=== PATIENT | male | born 1970 | race Two or more races ===

== ENCOUNTER → 2017-02-06 08:44 | Outpatient (CLI) | payer SELFPAY ==
--- NOTE | 2017-02-06 10:54 | NUR ---
Nutrition education for pre/post op bariatric surgery: S: Pt reports he has been overeating at meals for some time now. He has recently started to track his calorie intake using an I-phone alvin. Pt is trying to follow a [address] Gillespie. Pt is really working on decreasing portion size. Pt is having trouble following a meal plan on the weekends. Pt has a sedentary job and sits all day; however, pt is starting to walk at breaks and whenever he can during the day. Pt has a very strong family history of DMT2 and HTN. O: 46 year old male Ht: 6' Wt: 452# IBW: 178# +/-10% BMI: 61.3 Goal wt post-sursgery: 240# PMH: sleep apnea, pre-HTN A: Reviewed pre/post op diet; reviewed sample menus; 3 ounce meal size; liquids between meals; no straws, no carbonated drinks, no alcohol; protein supplements; stomach size and pouch stretching; no sweets or high fat foods; vitamin, mineral supplements. Pt is not too happy with diet restrictions. Pt is still in the contemplation stage. Pt is now thinking he may be able to lose weight with diet modification and not have bariatric surgery. Pt questions answered. Pt with good understanding of information provided; h didier, pt may not be ready to make the necessary diet changes needed for long-term weight loss success. P: Provided pt with printed diet information and RDN name and phone number. RDN will be available if needed. Thank you for the consult.
== END ==
LOC: D.FANS 08:44
DX: Z01.818 Encounter for other preprocedural examination (principal)

== ENCOUNTER 2018-05-30 08:59 | Outpatient (CLI) | payer OTHER | END 2018-05-30 10:20 | LOC: D.OPS 08:59 | DX: E66.01 Morbid (severe) obesity due to excess calories (principal) ==

== ENCOUNTER 2018-06-10 05:45 | Day surgery (SDC) | payer OTHER ==
[~2018-06-10] VITALS: Ht 182.9 cm; Wt 204.1 kg
[2018-06-10 06:17] LABS: HEMATOCRIT 42.5 % (42.0-54.0); HEMOGLOBIN 14.7 g/dL (13.5-17.5); MCH 30.7 pg (26.0-34.0); MCHC 34.6 g/dL (31.0-37.0); MCV 88.7 fL (80.0-100.0); MEAN PLATELET VOLUME 9.6 fL (7.4-10.4); RBC 4.79 10x6/uL (4.20-6.10); RDW 13.6 % (11.5-14.5); WBC 5.8 10x3/uL (4.8-10.8)
[2018-06-10] MEDS ORDERED: ADVIL200 MG PO (06:35)
[2018-06-10] MEDS ORDERED: EXCEDRIN (06:36)
[2018-06-10 06:43] VITALS: BP 161/89; Ht 182.9 cm; Wt 204.1 kg
== END 2018-06-10 09:22 | disposition home or self-care (01) ==
LOC: D.OPS 05:45
PROVIDERS: Anesthesiology
DX: K21.0 Gastro-esophageal reflux disease with esophagitis (principal); K44.9 Diaphragmatic hernia without obstruction or gangrene; K22.10 Ulcer of esophagus without bleeding; K29.70 Gastritis, unspecified, without bleeding; E66.9 Obesity, unspecified; Z68.44 Body mass index [BMI] 60.0-69.9, adult; Z01.812 Encounter for preprocedural laboratory examination

== ENCOUNTER 2018-07-15 08:10 | Inpatient (IN) | payer OTHER ==
[2018-07-12 15:40] LABS: HEMATOCRIT 43.6 % (42.0-54.0); HEMOGLOBIN 15.1 g/dL (13.5-17.5); MCH 30.8 pg (26.0-34.0); MCHC 34.6 g/dL (31.0-37.0); MCV 88.8 fL (80.0-100.0); MEAN PLATELET VOLUME 9.8 fL (7.4-10.4); RBC 4.91 10x6/uL (4.20-6.10); RDW 13.5 % (11.5-14.5); WBC 8.8 10x3/uL (4.8-10.8)
[~2018-07-15] VITALS: Ht 182.9 cm; Wt 202.3 kg
[~2018-07-15 08:10] MED LIST: ADVIL200 MG PO; EXCEDRIN
[2018-07-15 08:33] VITALS: BP 155/81; BMI 60.5
[2018-07-15 17:14] VITALS: BP 178/101
--- NOTE | 2018-07-15 17:15 | NUR ---
ARRIVED TO ROOM 2217 AWAKE AND ALERT. RESP EVEN AND UNLABORED WITH NO DISTRESS NOTED OR VOICED. CAN VOICE NEEDS AND WANTS. C/O ABD PAIN RATING 8/10 ON PAIN SCALE. WAS MEDICATED WITH TOROAL PER ORDERS. ASSESSMENT COMPLETED. C/L IN REACH AT BEDSIDE.
[2018-07-15 18:03] VITALS: BP 184/103; Ht 182.9 cm; Wt 202.3 kg
[2018-07-15 20:00] VITALS: BP 164/97
--- NOTE | 2018-07-16 02:51 | NUR ---
EYES CLOSED RESPIRATIONS WITH EASE AND UNLABORED. SR UP X2 CALL LIGHT WITHIN REACH.
[2018-07-16 04:28] VITALS: BP 142/70
[2018-07-16 04:41] VITALS: BP 141/72
--- NOTE | 2018-07-16 07:30 | NUR ---
REC'D IN BED AWAKE AND ALERT. RESP EVEN AND UNLABORED WITH NO DISTRESS NOTED. CAN EXPRESS NEEDS AND WANTS. NO C/O NOTED OR VOICED. MORPHINE TELECOMMUNICATIONS REPAIRER IN USE. ASSESSMENT COMPLETED. C/L IN REACH AT BEDSIDE.
[2018-07-16 07:37] LABS: BASOPHILS 0.1 % (0-2); EOSINOPHILS 0 % (0-7); HEMATOCRIT 42.5 % (42.0-54.0); HEMOGLOBIN 14.7 g/dL (13.5-17.5); IMMATURE GRANULOCYTES 0.4 % (0-5); LYMPHOCYTES 8.7 % (15-50); MCH 30.4 pg (26.0-34.0); MCHC 34.6 g/dL (31.0-37.0); MEAN PLATELET VOLUME 10.1 fL (7.4-10.4); MONOCYTES 11.8 % (2-11); PLATELET COUNT 256 10x3/uL (130-400); RBC 4.83 10x6/uL (4.20-6.10); RDW 13.5 % (11.5-14.5)
[2018-07-16 07:59] LABS: ALBUMIN 3.3 g/dL (3.4-5.0); ALKALINE PHOSPHATASE 82 U/L (46-116); ALT (SGPT) 67 U/L (10-68); BILIRUBIN - TOTAL 0.54 mg/dL (0.2-1.3); CALC OSMOLALITY 275 mosm/kg (275-300); CALCIUM 9.1 mg/dL (8.5-10.1); CARBON DIOXIDE 25.7 mmol/L (21.0-32.0); CHLORIDE - SERUM 103 mmol/L (98-107); CREATININE - SERUM 0.8 mg/dL (0.6-1.3); GLUCOSE 122 mg/dL (74-106); POTASSIUM - SERUM 3.8 mmol/L (3.5-5.1); PROTEIN - SERUM 6.9 g/dL (6.4-8.2); SODIUM 138 mmol/L (136-145); UREA NITROGEN 9 mg/dL (7-18); eGFR NON AFRICAN AMERICAN > 90 mL/min (90-120)
[2018-07-16 08:36] VITALS: BP 150/56
--- NOTE | 2018-07-16 09:37 | NUR ---
NUTRITION MONITORING AND EVAL PT WITH NO SPECIFIC QUESTIONS REGARDING BARIATRIC SLEEVE DIET. DID HOWEVER REQUEST DIET GUIDELINES HE HAS RECENTLY MOVED AND LOST PREVIOUS INFORMATION. PROVIDED DIET SECTION OF WORKBOOK TO PT. RD FOLLOWING
[2018-07-16] MEDS ORDERED: ZOFRAN ODT4 MG/UDTAB PO (10:02)
[2018-07-16] MEDS ORDERED: HYDROCODON-ACE1 EAC7 PO (10:02)
--- NOTE | 2018-07-16 11:45 | NUR ---
PT DC HOME AT THIS ITME VOICE UNDERSTANDING OF DC ORDERS. IV WAS DC WELL. NO C/O NOTED AND WAS IN STABLE CONDITION UPON DEPARTURE.
[2018-08-02] MEDS ORDERED: FLOMAX0.4 MG PO (14:55)
== END 2018-07-16 11:51 | disposition home or self-care (01) | DRG 621 ==
LOC: D.SDCHOLD 08:10 → D.MS 16:16
PROVIDERS: ADMIT Surgery
PROC: 0DB64Z3 Excision of Stomach, Percutaneous Endoscopic Approach, Vertical (ICD-10-PCS; principal; 2018-07-15 10:45)
DX: E66.01 Morbid (severe) obesity due to excess calories (principal); Z68.44 Body mass index [BMI] 60.0-69.9, adult; I10 Essential (primary) hypertension; G47.33 Obstructive sleep apnea (adult) (pediatric)

== ENCOUNTER 2018-07-28 09:23 | Emergency (ER) | payer OTHER ==
[~2018-07-28] VITALS: Ht 182.9 cm; Wt 202.3 kg
[~2018-07-28 09:23] MED LIST changes: +HYDROCODON-ACE1 EAC7 PO; +ZOFRAN ODT4 MG/UDTAB PO
[2018-07-28 09:32] VITALS: Ht 182.9 cm; Wt 202.3 kg
[2018-07-28 09:59] LABS: BASOPHILS 0.4 % (0-2); EOSINOPHILS 0.8 % (0-7); HEMOGLOBIN 15.1 g/dL (13.5-17.5); IMMATURE GRANULOCYTES 0.3 % (0-5); LYMPHOCYTES 18.6 % (15-50); MCH 30.4 pg (26.0-34.0); MCHC 34.3 g/dL (31.0-37.0); MCV 88.7 fL (80.0-100.0); MEAN PLATELET VOLUME 10.2 fL (7.4-10.4); MONOCYTES 7.3 % (2-11); NEUTROPHILS 72.6 % (40-80); PLATELET COUNT 273 10x3/uL (130-400); RBC 4.96 10x6/uL (4.20-6.10); RDW 13.6 % (11.5-14.5); WBC 7.6 10x3/uL (4.8-10.8)
[2018-07-28 10:20] LABS: ALBUMIN 3.7 g/dL (3.4-5.0); ALKALINE PHOSPHATASE 93 U/L (46-116); ALT (SGPT) 62 U/L (10-68); BILIRUBIN - TOTAL 0.67 mg/dL (0.2-1.3); CALC OSMOLALITY 283 mosm/kg (275-300); CALCIUM 9.1 mg/dL (8.5-10.1); CHLORIDE - SERUM 103 mmol/L (98-107); CREATININE - SERUM 1.1 mg/dL (0.6-1.3); GLUCOSE 156 mg/dL (74-106); POTASSIUM - SERUM 3.6 mmol/L (3.5-5.1); PROTEIN - SERUM 7.5 g/dL (6.4-8.2); SODIUM 141 mmol/L (136-145); UREA NITROGEN 13 mg/dL (7-18); eGFR NON AFRICAN AMERICAN 76 mL/min (90-120)
[2018-07-28 10:47] LABS: APPEARANCE HAZY (CLEAR); BILIRUBIN NEGATIVE (NEGATIVE); COLOR YELLOW (YELLOW); GLUCOSE NEGATIVE (NEGATIVE); KETONE MODERATE mg/dL (NEGATIVE); NITRITE NEGATIVE (NEGATIVE); PROTEIN NEGATIVE (NEGATIVE); UROBILINOGEN NORMAL (NORMAL)
[2018-07-28 10:54] LABS: BACTERIA FEW /hpf (NONE SEEN); CALCIUM OXALATE CRYSTALS RARE /hpf (NONE SEEN); EPITHELIAL CELLS OCC /hpf (0-5); RED CELLS - URINE 25-50 /hpf (0-5); WHITE CELLS - URINE 0-5 /hpf (0-5)
[2018-07-28] MEDS ORDERED: TORADOL10 MG PO (12:56)
[2018-07-28 13:05] VITALS: BP 148/96
[2018-08-02] MEDS ORDERED: FLOMAX0.4 MG PO (14:55)
== END 2018-07-28 13:07 | disposition home or self-care (01) ==
LOC: D.ER 09:23
PROVIDERS: Family Medicine
DX: N20.0 Calculus of kidney (principal); Z98.84 Bariatric surgery status

== ENCOUNTER 2018-08-01 06:23 | Emergency (ER) | payer OTHER ==
[~2018-08-01] VITALS: Ht 182.9 cm; Wt 191.8 kg
[~2018-08-01 06:23] MED LIST changes: +TORADOL10 MG PO
[2018-08-01 06:27] VITALS: Ht 182.9 cm; Wt 191.8 kg
[2018-08-01] MEDS ORDERED: FLOMAX0.4 MG PO (06:28)
[2018-08-01] MEDS ORDERED: ULTRAM50 MG PO (06:28)
[2018-08-01 07:12] LABS: BASOPHILS 0.5 % (0-2); EOSINOPHILS 0.4 % (0-7); HEMATOCRIT 41.3 % (42.0-54.0); HEMOGLOBIN 14.1 g/dL (13.5-17.5); IMMATURE GRANULOCYTES 0.4 % (0-5); LYMPHOCYTES 12.8 % (15-50); MCH 29.9 pg (26.0-34.0); MCHC 34.1 g/dL (31.0-37.0); MCV 87.5 fL (80.0-100.0); MEAN PLATELET VOLUME 10.3 fL (7.4-10.4); NEUTROPHILS 74.9 % (40-80); PLATELET COUNT 262 10x3/uL (130-400); RBC 4.72 10x6/uL (4.20-6.10); RDW 13.5 % (11.5-14.5); WBC 7.3 10x3/uL (4.8-10.8)
[2018-08-01 07:21] LABS: ALBUMIN 3.5 g/dL (3.4-5.0); ALKALINE PHOSPHATASE 85 U/L (46-116); ALT (SGPT) 46 U/L (10-68); BILIRUBIN - TOTAL 0.64 mg/dL (0.2-1.3); CALC OSMOLALITY 283 mosm/kg (275-300); CALCIUM 8.8 mg/dL (8.5-10.1); CARBON DIOXIDE 22.7 mmol/L (21.0-32.0); CHLORIDE - SERUM 105 mmol/L (98-107); CREATININE - SERUM 1.2 mg/dL (0.6-1.3); GLUCOSE 119 mg/dL (74-106); POTASSIUM - SERUM 3.4 mmol/L (3.5-5.1); SODIUM 141 mmol/L (136-145); UREA NITROGEN 17 mg/dL (7-18); eGFR NON AFRICAN AMERICAN 69 mL/min (90-120)
[2018-08-01 07:24] LABS: AMYLASE - SERUM 65 U/L (25-115); LIPASE 227 U/L (73-393); TROPONIN-I < 0.017 ng/mL (0.000-0.060)
[2018-08-01] MEDS ORDERED: DILAUDID4 MG PO (07:40)
[2018-08-01] MEDS ORDERED: K-DUR20 MEQ PO (07:40)
[2018-08-01 07:41] LABS: APPEARANCE HAZY (CLEAR); BACTERIA FEW /hpf (NONE SEEN); BILIRUBIN NEGATIVE (NEGATIVE); COLOR YELLOW (YELLOW); EPITHELIAL CELLS OCC /hpf (0-5); GLUCOSE NEGATIVE (NEGATIVE); KETONE LARGE mg/dL (NEGATIVE); MUCUS <1+ /lpf (NONE SEEN); NITRITE NEGATIVE (NEGATIVE); PROTEIN NEGATIVE (NEGATIVE); SPECIFIC GRAVITY 1.015 (1.005-1.020)
[2018-08-01 08:32] VITALS: BP 143/84
[2018-08-02] MEDS ORDERED: FLOMAX0.4 MG PO (14:55)
== END 2018-08-01 08:31 | disposition home or self-care (01) ==
LOC: D.ER 06:23
PROVIDERS: Family Medicine
DX: R10.9 Unspecified abdominal pain (principal); E87.6 Hypokalemia; N20.1 Calculus of ureter

== ENCOUNTER 2018-08-06 08:50 | Outpatient (CLI) | payer OTHER ==
[2018-08-01 06:27] VITALS: BMI 57.4
[~2018-08-06 08:50] MED LIST changes: +DILAUDID4 MG PO; +FLOMAX0.4 MG PO; +K-DUR20 MEQ PO; +ULTRAM50 MG PO
== END 2018-08-06 08:51 | disposition home or self-care (01) ==
LOC: D.PAN 08:50 → EDSTATUS 11:00 → D.OPS 11:00 → D.PAN 11:00
PROVIDERS: ATTEND Urology
DX: N20.0 Calculus of kidney (principal)

== ENCOUNTER 2018-08-23 04:00 | Emergency (ER) | payer OTHER ==
[~2018-08-23] VITALS: Ht 182.9 cm; Wt 190.9 kg
[2018-08-23 04:07] VITALS: Ht 182.9 cm; Wt 190.9 kg
[2018-08-23 04:31] LABS: HEMATOCRIT 42.8 % (42.0-54.0); HEMOGLOBIN 14.7 g/dL (13.5-17.5); LYMPHOCYTES 27.7 % (15-50); MCH 29.9 pg (26.0-34.0); MCHC 34.3 g/dL (31.0-37.0); MEAN PLATELET VOLUME 10.3 fL (7.4-10.4); RBC 4.92 10x6/uL (4.20-6.10); RDW 14.2 % (11.5-14.5)
[2018-08-23 04:33] LABS: APPEARANCE CLEAR (CLEAR); BILIRUBIN NEGATIVE (NEGATIVE); COLOR YELLOW (YELLOW); GLUCOSE NEGATIVE (NEGATIVE); KETONE MODERATE mg/dL (NEGATIVE); NITRITE NEGATIVE (NEGATIVE); PROTEIN NEGATIVE (NEGATIVE); SPECIFIC GRAVITY 1.015 (1.005-1.020); UROBILINOGEN NORMAL (NORMAL)
[2018-08-23 04:34] LABS: PLATELET COUNT 206 10x3/uL (130-400)
[2018-08-23 04:55] LABS: ALBUMIN 3.6 g/dL (3.4-5.0); ALKALINE PHOSPHATASE 104 U/L (46-116); ALT (SGPT) 45 U/L (10-68); AMYLASE - SERUM 48 U/L (25-115); BILIRUBIN - TOTAL 1.05 mg/dL (0.2-1.3); CALC OSMOLALITY 283 mosm/kg (275-300); CALCIUM 9.2 mg/dL (8.5-10.1); CARBON DIOXIDE 26.3 mmol/L (21.0-32.0); CHLORIDE - SERUM 103 mmol/L (98-107); CREATININE - SERUM 1.1 mg/dL (0.6-1.3); GLUCOSE 116 mg/dL (74-106); LIPASE 244 U/L (73-393); POTASSIUM - SERUM 3.4 mmol/L (3.5-5.1); SODIUM 142 mmol/L (136-145); UREA NITROGEN 13 mg/dL (7-18); eGFR NON AFRICAN AMERICAN 76 mL/min (90-120)
[2018-08-23] MEDS ORDERED: ZOFRAN ODT4 MG/UDTAB PO (08:14)
[2018-08-23] MEDS ORDERED: FLOMAX0.4 MG PO (08:14)
[2018-08-23 08:35] VITALS: BP 150/83
== END 2018-08-23 08:34 | disposition home or self-care (01) ==
LOC: D.ER 04:00
PROVIDERS: Family Medicine
DX: N20.1 Calculus of ureter (principal); R30.0 Dysuria; R35.0 Frequency of micturition; R39.15 Urgency of urination

== ENCOUNTER 2019-05-25 23:07 | Inpatient (IN) | payer BC ==
[~2019-05-25] VITALS: Ht 182.9 cm; Wt 149.7 kg
[2019-05-25 23:38] LABS: HEMATOCRIT 42.7 % (42.0-54.0); HEMOGLOBIN 14.4 g/dL (13.5-17.5); LYMPHOCYTES 10.8 % (15-50); MCH 30.9 pg (26.0-34.0); MCHC 33.7 g/dL (31.0-37.0); MCV 91.6 fL (80.0-100.0); MEAN PLATELET VOLUME 9.8 fL (7.4-10.4); NEUTROPHILS 74.5 % (40-80); PLATELET COUNT 233 10x3/uL (130-400); RBC 4.66 10x6/uL (4.20-6.10); RDW 13.3 % (11.5-14.5); WBC 8.2 10x3/uL (4.8-10.8)
[2019-05-25 23:48] LABS: CALC OSMOLALITY 279 mosm/kg (275-300); CALCIUM 9.2 mg/dL (8.5-10.1); CARBON DIOXIDE 24.7 mmol/L (21.0-32.0); CHLORIDE - SERUM 104 mmol/L (98-107); CREATININE - SERUM 0.9 mg/dL (0.6-1.3); GLUCOSE 131 mg/dL (74-106); POTASSIUM - SERUM 3.5 mmol/L (3.5-5.1); SODIUM 138 mmol/L (136-145); UREA NITROGEN 17 mg/dL (7-18); eGFR NON AFRICAN AMERICAN > 90 mL/min (90-120)
--- NOTE | 2019-05-25 23:53 | NUR ---
PT PROVIDED URINAL.
[2019-05-25 23:56] LABS: ALBUMIN 3.6 g/dL (3.4-5.0); ALKALINE PHOSPHATASE 180 U/L (46-116); ALT (SGPT) 368 U/L (10-68); BILIRUBIN - TOTAL 1.55 mg/dL (0.2-1.3); LIPASE 175 U/L (73-393); PROTEIN - SERUM 7.4 g/dL (6.4-8.2)
[2019-05-25 23:58] LABS: TROPONIN-I < 0.017 ng/mL (0.000-0.060)
--- NOTE | 2019-05-26 00:10 | NUR ---
URINE TO LAB.
[2019-05-26 00:28] LABS: APPEARANCE CLEAR (CLEAR); BILIRUBIN NEGATIVE (NEGATIVE); COLOR YELLOW (YELLOW); GLUCOSE NEGATIVE (NEGATIVE); KETONE SMALL mg/dL (NEGATIVE); NITRITE NEGATIVE (NEGATIVE); PROTEIN NEGATIVE (NEGATIVE); SPECIFIC GRAVITY 1.005 (1.005-1.020); UROBILINOGEN NORMAL (NORMAL)
[2019-05-26 00:29] LABS: BACTERIA FEW /hpf (NEGATIVE); EPITHELIAL CELLS 0-5 /hpf (0-5); RED CELLS - URINE 0-5 /hpf (0-5); WHITE CELLS - URINE 0-5 /hpf (NEGATIVE)
--- NOTE | 2019-05-26 01:26 | NUR ---
PT AMBULATED TO RESTROOM WITH A STEADY GAIT.
[2019-05-26 02:45] VITALS: BP 108/51; BMI 44.8
--- NOTE | 2019-05-26 08:20 | NUR ---
ALERT AND ORIENTED. NO DISTRESS NOTED. FAMILY AT BS. NPO FOR US GALL BLADDER. CL IN REACH.
[2019-05-26 08:21] VITALS: BP 138/83
--- NOTE | 2019-05-26 10:40 | NUR ---
CALLED FOR ORDER FOR TYLENOL TO [facility]/DR PAULINO.
[2019-05-26 11:42] LABS: BASOPHILS 0.1 % (0-2); EOSINOPHILS 0 % (0-7); HEMATOCRIT 41.1 % (42.0-54.0); HEMOGLOBIN 13.7 g/dL (13.5-17.5); IMMATURE GRANULOCYTES 0.1 % (0-5); LYMPHOCYTES 6.6 % (15-50); MCH 31.1 pg (26.0-34.0); MCHC 33.3 g/dL (31.0-37.0); MCV 93.4 fL (80.0-100.0); MEAN PLATELET VOLUME 10.3 fL (7.4-10.4); MONOCYTES 11.4 % (2-11); NEUTROPHILS 81.8 % (40-80); PLATELET COUNT 232 10x3/uL (130-400); RDW 13.3 % (11.5-14.5); WBC 7.8 10x3/uL (4.8-10.8)
--- NOTE | 2019-05-26 12:25 | NUR ---
NO CHANGE IN ASSESSMENT. FAMILY IN ROOM. CL IN REACH. DR WYATT WAS CONSULTED AND WILL SEE HIM.
[2019-05-26 12:59] VITALS: BMI 44.7
[2019-05-26 14:45] VITALS: BP 144/78
--- NOTE | 2019-05-26 15:57 | MORECARE ---
CASE MANAGEMENT DISCHARGE SUMMARY PATIENT: CRISTOFER SULLIVAN UNIT: [id number] ADM DATE: 05/26/19 AGE: 49 : 74 SEX: M ROOM/BED: D.1213 AUTHOR: MARY ESCOBAR PHYSICIAN: REFERRING PHYSICIAN: GAY MONTANO MD DATE OF SERVICE: 05/26/19 Discharge Plan Patient Name: CRISTOFER SULLIVAN [facility] [facility] 1970 Planned Disposition: Home Anticipated Discharge Date: Discharge Date: Expected LOS: Initial Reviewer: [email or web address] Initial Review Date: 05/26/2019 Generated: 05/26/19 4:56 pm DCPIA - Discharge Planning Initial Assessment Updated by [email or web address]: Lawrence Marshall on 05/26/19 3:53 pm * Is the patient Alert and Oriented? Yes * How many steps to enter\exit or inside your home? * PCP DR. Keesha NATHAN * Pharmacy [facility] * Preadmission Environment Home with Family * ADLs Independent * Equipment CPAP * Other Equipment [employer] - MEDICAL EQUIPMENT PROVIDER * List name and contact numbers for known caregivers / representatives who currently or will assist patient after discharge: NA SULLIVAN, SPOUSE, * Verbal permission to speak to the caregivers and representatives has been obtained from the patient. N/A * Community resources currently utilized None * Please name any agencies selected above. NONE * Additional services required to return to the preadmission environment? No * Can the patient safely return to the preadmission environment? Yes * Has this patient been hospitalized within the prior 30 days at any hospital? No Patient Name: CRISTOFER SULLIVAN Page [id number] at 1557 All edits/amendments must be made on the electronic document DICTATION DATE: 05/26/191555 EMBOSSOGRAPH OPERATOR: KOMAL 05/26/191555 RPT#: [id number] DC DATE: STATUS: ADM IN [facility] [address] [place] [address] END OF REPORT
--- NOTE | 2019-05-26 16:05 | MORECARE ---
CASE MANAGEMENT DISCHARGE SUMMARY PATIENT: CRISTOFER SULLIVAN UNIT: [id number] ADM DATE: 05/26/19 AGE: 49 : 74 SEX: M ROOM/BED: D.1213 AUTHOR: SHAWN,DOC PHYSICIAN: REFERRING PHYSICIAN: GAY MONTANO MD DATE OF SERVICE: 05/26/19 Discharge Plan Patient Name: CRISTOFER SULLIVAN Facility: [facility]:[place] : 1970 Planned Disposition: Home Anticipated Discharge Date: Discharge Date: Expected LOS: Initial Reviewer: [email or web address] Initial Review Date: 05/26/2019 Generated: 05/26/19 5:05 pm Comments DCP- Discharge Planning Updated by [email or web address]: Lawrence Marshall on 05/26/19 2:[address] Patient Name: CRISTOFER SULLIVAN Admission Status: ER Accout number: [id number] Admission Date: 05-26-2019 : 1970 Admission Diagnosis: Attending: GAY MONTANO Current LOS: 1 Anticipated DC Date: Planned Disposition: Home Primary Insurance: [employer] O Discharge Planning Comments: CM RECEIVED ORDER FOR CM TO ASSIST PT WITH LIVING WILL. CM MET WITH PT IN ROOM TO DISCUSS DISCHARGE PLANNING AND NEEDS. PT REPORTS LIVING AT HOME INDEPENDENTLY WITH HIS SPOUSE. PT HAS CPAP FROM [facility]. PT HAS NO OUTSIDE SERVICES ASSISTING IN THE HOME. CM DISCUSSED AVAILABILITY OF HOME HEALTH, REHAB SERVICES AND MEDICAL EQUIPMENT. PT DENIES DISCHARGE NEEDS, REPORTS HIS WILL PICK HIM UP FOR DISCHARGE HOME, PT HAS NO ANTICIPATED DISCHARGE NEEDS AT THIS TIME. CM PROVIDED LIVING WILL AND MEDICAL POWER OF APPLICATION SUPPORT, DISCUSSED HOW TO COMPLETE IT AND NOT TO SIGN IT; CM INSTRUCTED PT TO NOTIFY CM WHEN FILLED OUT WITHOUT SIGNATURE AND THAT CM WILL CALL NOTARY TO THE ROOM TO WITNESS AND NOTARIZE SIGNATURES BETWEEN HOURS OF 8AM AND 4:30PM SUNDAY THRU SUNDAY. PT REPORTED UNDERSTANDING. PT PLANS TO DISCHARGE HOME WITH SPOUSE, HAS NO ANTICIPATED DISCHARGE NEEDS AT THIS TIME. CM TO FOLLOW AND ASSIST IF NEEDED. Psychological Operations Officer: Lawrence Marshall DCPIA - Discharge Planning Initial Assessment Updated by [email or web address]: Lawrence Marshall on 05/26/19 3:53 pm * Is the patient Alert and Oriented? Yes * How many steps to enter\exit or inside your home? * PCP DR. Keesha NATHAN * Pharmacy [facility] * Preadmission Environment Home with Family * ADLs Independent * Equipment CPAP * Other Equipment [employer] - MEDICAL EQUIPMENT PROVIDER * List name and contact numbers for known caregivers / representatives who currently or will assist patient after discharge: NA SULLIVAN, SPOUSE, * Verbal permission to speak to the caregivers and representatives has been obtained from the patient. N/A * Community resources currently utilized None * Please name any agencies selected above. NONE * Additional services required to return to the preadmission environment? No * Can the patient safely return to the preadmission environment? Yes * Has this patient been hospitalized within the prior 30 days at any hospital? No Last DP export: 05/26/19 2:57 Patient Name: CRISTOFER SULLIVAN Page 12033 at 1605 All edits/amendments must be made on the electronic document DICTATION DATE: 05/26/191604 KETTLE HAND: KOMAL 05/26/19 160 RPT#: [id number] DC DATE: STATUS: ADM IN [facility] [address] [place] [address] END OF REPORT
--- NOTE | 2019-05-26 17:19 | NUR ---
NO CHANGE IN ASSESSMENT. DR PAULINO HERE. PATIENT IS BEING SCHEDULED FOR A LAP OLAF, PROBABLY TOMORROW. AT BS.
--- NOTE | 2019-05-26 19:31 | NUR ---
PATIENT RESTING IN BED WITH AT BEDSIDE. NO S/S OF DISTRESS. PATIENT DENIES NEEDS AT THIS TIME. BED IN LOWEST POSITION AND CALL LIGHT WITHIN REACH. ENCOURAGED THE PATIENT TO CALL IF HE HAS NEEDS. WILL CONTINUE TO MONITOR. ADMINISTERED LR BOLUS PER ORDERS.
[2019-05-26 19:32] LABS: APTT 28.6 SECONDS (22.8-39.4); INR 1.37 (0.85-1.17); PROTIME 16.3 SECONDS (11.6-15.0)
[2019-05-26 19:33] LABS: D-DIMER-QUANTITATIVE 0.64 ug/mLFEU (0.20-0.54)
--- NOTE | 2019-05-26 19:50 | NUR ---
PLACED HEART MONITOR ON PATIENT PER ORDER
[2019-05-26 20:38] VITALS: BP 133/69
[2019-05-27] VITALS (13 sets, daily range): BP systolic 124–153; BP diastolic 62–86; Ht 182.9 cm; Wt 149.7 kg
[2019-05-27 06:10] LABS: BASOPHILS 0.4 % (0-2); EOSINOPHILS 1.1 % (0-7); HEMOGLOBIN 13.5 g/dL (13.5-17.5); IMMATURE GRANULOCYTES 0.4 % (0-5); LYMPHOCYTES 13.4 % (15-50); MCH 31.5 pg (26.0-34.0); MCHC 33.8 g/dL (31.0-37.0); MCV 93.5 fL (80.0-100.0); MEAN PLATELET VOLUME 10.1 fL (7.4-10.4); MONOCYTES 17.5 % (2-11); NEUTROPHILS 67.2 % (40-80); RBC 4.28 10x6/uL (4.20-6.10); RDW 13.4 % (11.5-14.5)
[2019-05-27 06:22] LABS: PLATELET COUNT 185 10x3/uL (130-400); WBC 4.6 10x3/uL (4.8-10.8)
[2019-05-27 06:36] LABS: ALBUMIN 2.8 g/dL (3.4-5.0); ALKALINE PHOSPHATASE 164 U/L (46-116); BILIRUBIN - TOTAL 2.14 mg/dL (0.2-1.3); CALCIUM 8.4 mg/dL (8.5-10.1); CARBON DIOXIDE 27.2 mmol/L (21.0-32.0); CHLORIDE - SERUM 105 mmol/L (98-107); CREATININE - SERUM 0.7 mg/dL (0.6-1.3); POTASSIUM - SERUM 3.6 mmol/L (3.5-5.1); PROTEIN - SERUM 6.2 g/dL (6.4-8.2); SODIUM 139 mmol/L (136-145); eGFR NON AFRICAN AMERICAN > 90 mL/min (90-120)
[2019-05-27 06:37] LABS: ALT (SGPT) 259 U/L (10-68); CALC OSMOLALITY 274 mosm/kg (275-300); GLUCOSE 80 mg/dL (74-106); UREA NITROGEN 8 mg/dL (7-18)
--- NOTE | 2019-05-27 07:20 | NUR ---
ALERT AND ORIENTED. NO DISTRESS NOTED. CL IN REACH. SCHEDULED FOR LAP CHOL TODAY PER DR WYATT. CONSENTS SIGNED AND ON CHART.
--- NOTE | 2019-05-27 11:51 | NUR ---
BATHED FOR LAP OLAF PER PATIENT AND . NO DISTRESS NOTED. VISITORS IN ROOM. CL IN REACH.
--- NOTE | 2019-05-27 12:08 | NUR ---
CALLED PHARMACY [facility] FOR [facility]. WAITING FOR PHARMACY TO BRING.
--- NOTE | 2019-05-27 13:17 | NUR ---
PATIENT WENT TO SURGERY AROUND 1230. FAMILY HERE. PRE OP MEDS WERE GIVEN.
--- NOTE | 2019-05-27 14:52 | NUR ---
RETURNED FROM SURGERY. ALERT AND ORIENTED. VSS. RESP EVEN AND UNLABORED. ABD INCISIONS X4 WITH STERI STRIPS. FAMILY AT BS.
--- NOTE | 2019-05-27 17:52 | NUR ---
CALLED [facility]. PATIENT HAS POSITIVE BLOOD CFULTURE GRAM POSITIVE COCCI.
--- NOTE | 2019-05-27 18:18 | NUR ---
NO CHANGE IN ASSESSMENT. ATE FULL LIQUIDS WO DIFFICULTY. AT BS. RESP EVEN AND UNLABORED. CL IN REACH.
--- NOTE | 2019-05-27 21:46 | NUR ---
C/O FEELING TOO HOT. HE STATES "SOMETHING DOES NOT FEEL RIGHT." ASSESSED PT'S TEMP. TEMP 100.6 AT THIS TIME. PO TYLENOL GIVEN. WILL CTM.
--- NOTE | 2019-05-28 01:57 | NUR ---
ON REASSESSMENT PT'S TEMP 98.7. IV TORADOL GIVEN FOR PAIN 12/09. WILL CPOC.
[2019-05-28 03:59] VITALS: BP 126/70
[2019-05-28 06:32] LABS: ALBUMIN 2.6 g/dL (3.4-5.0); ALKALINE PHOSPHATASE 180 U/L (46-116); CALCIUM 8.2 mg/dL (8.5-10.1); CARBON DIOXIDE 25.4 mmol/L (21.0-32.0); CHLORIDE - SERUM 106 mmol/L (98-107); CREATININE - SERUM 0.8 mg/dL (0.6-1.3); GLUCOSE 101 mg/dL (74-106); MAGNESIUM - SERUM 2.2 mg/dL (1.8-2.4); POTASSIUM - SERUM 3.7 mmol/L (3.5-5.1); PROTEIN - SERUM 5.4 g/dL (6.4-8.2); SODIUM 139 mmol/L (136-145); eGFR NON AFRICAN AMERICAN > 90 mL/min (90-120)
[2019-05-28 06:42] LABS: ALT (SGPT) 191 U/L (10-68); CALC OSMOLALITY 277 mosm/kg (275-300); UREA NITROGEN 13 mg/dL (7-18)
[2019-05-28 06:51] LABS: BASOPHILS 0.1 % (0-2); EOSINOPHILS 0 % (0-7); HEMATOCRIT 39.6 % (42.0-54.0); HEMOGLOBIN 13.1 g/dL (13.5-17.5); IMMATURE GRANULOCYTES 0.3 % (0-5); LYMPHOCYTES 9.3 % (15-50); MCH 30.9 pg (26.0-34.0); MCHC 33.1 g/dL (31.0-37.0); MCV 93.4 fL (80.0-100.0); MEAN PLATELET VOLUME 10.4 fL (7.4-10.4); MONOCYTES 16.1 % (2-11); NEUTROPHILS 74.2 % (40-80); PLATELET COUNT 201 10x3/uL (130-400); RBC 4.24 10x6/uL (4.20-6.10); RDW 13.3 % (11.5-14.5)
[2019-05-28 07:30] VITALS: BP 118/72
--- NOTE | 2019-05-28 08:44 | NUR ---
PATIENT RECIEVED RESTING IN BED, NO NEEDS VOICED. ENOURAGED DEEP BREATHING EXERCISED AND INSTRUCTED ON USE OF IS. PATIENT VOICED UNDERSTANDING AND RETURNED DEMONSTRATION
--- NOTE | 2019-05-28 13:33 | NUR ---
Nutrition Follow-up: Diet: Full Liquid PO intake: 100% dinner last night Last BM: none recorded since admit x 2 days. Wt: 330# (05/26/19) Labs, meds and nursing skin assessment reviewed. Continue to ADAT to Regular diet (half portions). RD Following.
[2019-05-28] MEDS ORDERED: HYDROCODON-ACE1 EAC7 PO (14:05)
[2019-05-28 16:18] VITALS: BP 134/78
--- NOTE | 2019-05-28 17:27 | NUR ---
IV REMOVED WITH NO REDNESS OR EDEMA AT SITE. FLU SHOT GIVEN TO LEFT DELTOID. DISCHARGE INSTRUCTIONS GIVEN WITH PATIENT VOICING UNDERSTANDING. PATIENT TAKEN TO PRIVATE CAR VIA WHEELCHAIR.
[2019-05-28 18:08] LABS: HEPATITIS C ANTIBODY <0.1 (0.0-0.9)
--- NOTE | 2019-05-30 10:10 | MORECARE ---
CASE MANAGEMENT DISCHARGE SUMMARY PATIENT: CRISTOFER SULLIVAN UNIT: [id number] ADM DATE: 05/26/19 AGE: 49 : 74 SEX: M ROOM/BED: D.1213 AUTHOR: SHAWN,DOC PHYSICIAN: REFERRING PHYSICIAN: GAY MONTANO MD DATE OF SERVICE: 05/30/19 Discharge Plan Patient Name: CRISTOFER SULLIVAN Facility: [facility]:[place] : 1970 Planned Disposition: Home Anticipated Discharge Date: 05/28/19 Discharge Date: 05/28/2019 Expected LOS: 2 Initial Reviewer: [email or web address] Initial Review Date: 05/26/2019 Generated: 05/30/19 11:10 am DCP- Discharge Planning Updated by [email or web address]: Lawrence Marshall on 05/26/19 2:[address] Patient Name: CRISTOFER SULLIVAN Admission Status: ER Accout number: [id number] Admission Date: 05-26-2019 : 1970 Admission Diagnosis: Attending: GAY MONTANO Current LOS: 1 Anticipated DC Date: Planned Disposition: Home Primary Insurance: [employer] O Discharge Planning Comments: CM RECEIVED ORDER FOR CM TO ASSIST PT WITH LIVING WILL. CM MET WITH PT IN ROOM TO DISCUSS DISCHARGE PLANNING AND NEEDS. PT REPORTS LIVING AT HOME INDEPENDENTLY WITH HIS SPOUSE. PT HAS CPAP FROM [facility]. PT HAS NO OUTSIDE SERVICES ASSISTING IN THE HOME. CM DISCUSSED AVAILABILITY OF HOME HEALTH, REHAB SERVICES AND MEDICAL EQUIPMENT. PT DENIES DISCHARGE NEEDS, REPORTS HIS WILL PICK HIM UP FOR DISCHARGE HOME, PT HAS NO ANTICIPATED DISCHARGE NEEDS AT THIS TIME. CM PROVIDED LIVING WILL AND MEDICAL POWER OF BIKE MECHANIC, DISCUSSED HOW TO COMPLETE IT AND NOT TO SIGN IT; CM INSTRUCTED PT TO NOTIFY CM WHEN FILLED OUT WITHOUT SIGNATURE AND THAT CM WILL CALL NOTARY TO THE ROOM TO WITNESS AND NOTARIZE SIGNATURES BETWEEN HOURS OF 8AM AND 4:30PM SUNDAY THRU SUNDAY. PT REPORTED UNDERSTANDING. PT PLANS TO DISCHARGE HOME WITH SPOUSE, HAS NO ANTICIPATED DISCHARGE NEEDS AT THIS TIME. CM TO FOLLOW AND ASSIST IF NEEDED. Database Software Technician: Lawrence Marshall DCPIA - Discharge Planning Initial Assessment Updated by [email or web address]: Lawrence Marshall on 05/26/19 3:53 pm * Is the patient Alert and Oriented? Yes * How many steps to enter\exit or inside your home? * PCP DR. Keesha NATHAN * Pharmacy [facility] * Preadmission Environment Home with Family * ADLs Independent * Equipment CPAP * Other Equipment [employer] - MEDICAL EQUIPMENT PROVIDER * List name and contact numbers for known caregivers / representatives who currently or will assist patient after discharge: NA SULLIVAN, SPOUSE, * Verbal permission to speak to the caregivers and representatives has been obtained from the patient. N/A * Community resources currently utilized None * Please name any agencies selected above. NONE * Additional services required to return to the preadmission environment? No * Can the patient safely return to the preadmission environment? Yes * Has this patient been hospitalized within the prior 30 days at any hospital? No Last DP export: 05/26/19 3:05 Patient Name: CRISTOFER SULLIVAN Page [id number] at 1010 All edits/amendments must be made on the electronic document DICTATION DATE: 05/30/19 1010 CANNING MACHINE OPERATOR: KOMAL 05/30/19 1010 RPT#: [id number] DC DATE:05/28/19 STATUS: DIS IN [facility] [address] [place] [address] END OF REPORT
== END 2019-05-28 17:29 | disposition home or self-care (01) | DRG 418 ==
LOC: D.ER 23:07 → OBSVTIME 05-26 01:28 → D.M3 05-26 01:28
PROVIDERS: Family Medicine; Surgery; ADMIT Internal Medicine Nephrology; ATTEND Internal Medicine Nephrology
PROC: 0FT44ZZ Resection of Gallbladder, Percutaneous Endoscopic Approach (ICD-10-PCS; principal; 2019-05-27 11:30)
DX: K80.00 Calculus of gallbladder with acute cholecystitis without obstruction (principal); Z68.44 Body mass index [BMI] 60.0-69.9, adult; E66.01 Morbid (severe) obesity due to excess calories; D64.9 Anemia, unspecified